=== PATIENT | male | born 1975 | race African-American/Black ===

== ENCOUNTER 2021-01-25 15:57 | Emergency (ER) | payer OTHER ==
[~2021-01-25] VITALS: Ht 180.3 cm; Wt 68.2 kg
[~2021-01-25 15:57] MED LIST: ALBU8HFA
[2021-01-25 16:49] VITALS: BP 125/81
[2021-01-25] MEDS ORDERED: IBUPROFEN 600 MG TABLET PO ONE (18:45)
== END 2021-01-25 19:03 | disposition home or self-care (01) ==
LOC: EMS 17:30
DX: M79.89 Other specified soft tissue disorders (principal); J45.909 Unspecified asthma, uncomplicated; F41.9 Anxiety disorder, unspecified
CPT/HCPCS: 99283

== ENCOUNTER 2021-06-14 20:44 | Emergency (ER) | payer OTHER ==
[~2021-06-14] VITALS: Ht 177.8 cm; Wt 68.2 kg
[2021-06-14 21:55] VITALS: BP 129/74
== END 2021-06-14 22:15 | disposition home or self-care (01) ==
LOC: EMS 20:46
DX: M54.5 Low back pain (principal); J45.909 Unspecified asthma, uncomplicated; F41.9 Anxiety disorder, unspecified
CPT/HCPCS: 99282; Z7502

== ENCOUNTER 2022-08-11 18:09 | Emergency (ER) | payer OTHER ==
[~2022-08-11] VITALS: Ht 177.8 cm; Wt 68.2 kg
[2022-08-11 18:29] VITALS: BP 118/74
== END 2022-08-11 23:49 | disposition left against medical advice (07) ==
LOC: EMS 18:09
DX: K08.89 Other specified disorders of teeth and supporting structures (principal); R21 Rash and other nonspecific skin eruption; Z53.21 Procedure and treatment not carried out due to patient leaving prior to being seen by health care provider